=== PATIENT | male | born 1980 | race Caucasian/White ===

== ENCOUNTER 2022-02-22 11:00 | Emergency (ER) | payer BC, SELFPAY ==
--- NOTE | ~2022-02-22 | CT_ITS ---
EXAMINATION: CT brain wo con DATE: 02/22/2022 13:45 INDICATION: Right thigh pain, headaches and vision loss. TECHNIQUE: Computed tomography (CT) of the head was performed without intravenous contrast. Sagittal and coronal reconstructions were performed. Automated exposure control and iterative reconstruction t echnique were employed. The dose-length product was 605.33 mGy-cm. COMPARISON: head CT dated 12/14/17 FINDINGS: No acute intracranial hemorrhage, acute infarction or abnormal extra axial fluid collection. Ventricl es are normal and symmetric. No mass/mass effect. Mild mucosal thickening the bilateral maxillary sin uses. The orbits and mastoid air cells are normal. IMPRESSION: 1. Normal brain. No acute intracranial process. Reviewed, dictated and finalized at location A. [employer]PER
[2022-02-22 11:23] VITALS: BP 139/88; PULSE 72; RESP 16; TEMP 36.6; O2SAT 98
--- NOTE | 2022-02-22 13:35 | ED.EYEPROB ---
HPI - Eye Problem General Chief complaint: Eye Problems <Amy Solis PA-C - Last Filed: 02/22/22 18:11> Stated complaint: r eye/shooting pain <ILYA Vernon Last Filed: 02/22/22 18:11> Time Seen by Provider: 02/22/22 13:19 <ILYA Vernon Last Filed: 02/22/22 18:11> History of Present Illness HPI Narrative: Patient is a 42-year-old male here for evaluation of atraumatic right eye pain. Patient states the pain has been there for the past 2 weeks, and is worse with blinking. He denies known foreign body. He does not wear contact lenses or glasses. Patient is unsure if he has had blurry vision. He is concerned because his father has a history of pseudotumor cerebri and is requesting head imaging. No headaches, nausea, vomiting, proptosis, eye redness or discharge. <Amy Solis PA-C - Last Filed: 02/22/22 18:11> Related Data Allergies/adverse reactions: Allergies Allergy/AdvReac Type Severity Reaction Status Date / Time No Known Allergies Allergy Verified 02/22/22 13:25 <ILYA Vernon Last Filed: 02/22/22 18:11> Review of Systems Review of Systems: Gen.: Denies fevers or chills Eyes: Reports eye pain ENT: Denies congestion Respiratory: Denies shortness of breath or cough CV: Denies chest pain or palpitations GI: Denies abdominal pain nausea, emesis or diarrhea denies burning, urgency, frequency or hematuria Musculoskeletal: Denies back pain or muscle pain Neuro: Denies numbness, tingling, weakness or focal weakness Skin: Denies rash Except as documented, all other systems reviewed and negative <ILYA Vernon Last Filed: 02/22/22 18:11> Exam Narrative: APPEARANCE: Well appearing, no pain in distress, well-nourished. Head: No scalp tenderness. Normocephalic and atraumatic. EYES: PERRLA/EOMI, conjunctivae clear. Fluorescein exam without area of uptake; Joceline sign negative. No pain with extraocular movements. NOSE: No nasal drainage EARS: External ear normal in appearance THROAT: Oropharynx is clear. Mucous membranes are moist. NECK: Supple. No adenopathy, no masses. RESPIRATORY: Airway patent, respirations nonlabored. Clear to auscultation bilaterally, no rales, rhonchi, wheezing. CARDIOVASCULAR: Regular rate and rhythm without murmurs, rubs, or gallops. ABDOMINAL: Normoactive bowel sounds. Soft, nontender, nondistended. No rebound tenderness or guarding. MUSCULOSKELETAL: Extremities are warm and well-perfused. Moves all extremities well. No edema. NEURO: Normal speech. No focal neurologic deficits. SKIN: Skin is warm and dry. No rashes. PSYCHIATRIC: Normal affect/mood. <Amy Solis PA-C - Last Filed: 02/22/22 18:11> Course TOP CASE ASSEMBLER/PA Physician Supervision For this patient encounter, I reviewed the TOP CASE ASSEMBLER or PA documentation, treatment plan, and medical decision making <Talib Garcia MD - Last Filed: 02/22/22 21:41> Vital Signs Vital signs: Vital Signs Temperature 98 F 02/22/22 11:23 Pulse Rate 72 02/22/22 11:23 Respiratory Rate 16 02/22/22 11:23 Blood Pressure 139/88 02/22/22 11:23 Pulse Oximetry 98 02/22/22 11:23 Oxygen Delivery Room Air 02/22/22 11:23 Temperature 98 F 02/22/22 11:23 Pulse Rate 72 02/22/22 11:23 Respiratory Rate 16 02/22/22 11:23 Blood Pressure 139/88 02/22/22 11:23 Pulse Oximetry 98 02/22/22 11:23 Oxygen Delivery Room Air 02/22/22 11:23 <Amy Solis PA-C - Last Filed: 02/22/22 18:11> Vital Signs Temperature 98 F 02/22/22 11:23 Pulse Rate 72 02/22/22 11:23 Respiratory Rate 16 02/22/22 11:23 Blood Pressure 139/88 02/22/22 11:23 Pulse Oximetry 98 02/22/22 11:23 Oxygen Delivery Room Air 02/22/22 11:23 Temperature 98 F 02/22/22 11:23 Pulse Rate 72 02/22/22 11:23 Respiratory Rate 16 02/22/22 11:23 Blood Pressure 139/88 02/22/22 11:23 Pulse Oximetry 98 02/22
== END 2022-02-22 14:17 | disposition home or self-care (01) ==
LOC: ANHED 14:07
PROVIDERS: Emergency Provider Emergency Medicine
DX: H57.11 Ocular pain, right eye (principal)
CPT/HCPCS: 70450; 99284

== ENCOUNTER 2022-08-30 19:17 | Emergency (ER) | payer BC, SELFPAY ==
[2022-08-30] VITALS (21 sets, daily range): BP systolic 131–168; BP diastolic 81–105; PULSE 64–90; RESP 13–29; TEMP 36.9; O2SAT 96–100
--- NOTE | ~2022-08-30 | XR_ITS ---
EXAMINATION: XR chest 2V DATE: 08/30/2022 19:40 INDICATION: Nonradiating chest pain post 5 multiloculated TECHNIQUE: PA and lateral views of the chest were obtained. COMPARISON: Chest radiograph dated 09/06/2014 FINDINGS: The lungs remain clear with no focal airspace opacities, pulmonary edema, pleural effusion or pneumot horax. The cardiomediastinal silhouette is normal. Visualized bones and soft tissues are unremarkable . IMPRESSION: 1. Normal chest radiograph. Reviewed, dictated and finalized at location A. IMPRESSION: 1. Normal chest radiograph.
--- NOTE | 2022-08-30 19:19 | ECG_ITS ---
Measurements Intervals [place] Rate: 89 P: 47 [place]: 150 QRS: 19 QRSD: 93 T: 11 QT: 363 QTc: 444 Interpretive Statements SINUS RHYTHM MINIMAL Q WAVES- HIGH LATERAL LEADS NONSPECIFC ST ELEVATION IN ANTEROLATERAL LEADS BORDERLINE T WAVE ABNORMALITY- INFERIOR LEADS BASELINE ARTIFACT- I, III, AVL BORDERLINE ECG NO PREVIOUS ECG AVAILABLE FOR COMPARISON Electronically Signed On 08-30-2022 21:22:27 CDT by Paolo Pelaez D.O.
--- NOTE | 2022-08-30 19:52 | ED.CHESTPAIN ---
HPI - Chest Pain General Chief Complaint: Chest Pain Stated Complaint: chest pain, lightheaded Time Seen by Provider: 08/30/22 19:39 History of Present Illness HPI narrative: Patient is a 42-year-old male presenting with chest pain. Patient states that he was walking his dog when he was attacked by his neighbors dog. States that he then went on a 5 mile walk to work-up his anxiety and when he stopped he developed intermittent chest pain. States that it is left-sided and goes into his epigastrium. His gave him some Xanax and ibuprofen but the symptoms continued so he came in for evaluation. States that he will feel a little bit lightheaded whenever the pain comes on but he otherwise denies associated symptoms. No diaphoresis, nausea, shortness of breath, palpitations, leg swelling, back pain. No numbness or weakness. Related Data Allergies Allergy/AdvReac Type Severity Reaction Status Date / Time No Known Allergies Allergy Verified 08/30/22 19:34 Review of Systems Review of Systems: All systems reviewed & are unremarkable except as noted in HPI and below Exam Narrative: GENERAL: Well-appearing, well-nourished, and in no acute distress. HEAD: Normocephalic, atraumatic. EYES: PERRLA and EOMI. ENT: Nares clear, no rhinorrhea or epistaxis. Mucous membranes moist. NECK: Supple. CHEST: Clear to auscultation. No respiratory distress. HEART: Regular rate and rhythm. No murmur heard. Normal peripheral pulses. ABDOMEN: Soft, nontender, nondistended EXTREMITIES: Normal range of motion. No edema. SKIN: Warm, dry, no rash. NEURO: No focal deficits. Alert and oriented x3. PSYCH: Normal mood and affect. Course Vital Signs Vital signs: Vital Signs Temperature 98.5 F 08/30/22 19:22 Pulse Rate 88 08/30/22 19:22 Respiratory Rate 16 08/30/22 19:22 Blood Pressure 166/85 H 08/30/22 19:22 Pulse Oximetry 99 08/30/22 19:22 Oxygen Delivery Room Air 08/30/22 19:22 Temperature 98.5 F 08/30/22 19:22 Pulse Rate 66 08/30/22 23:21 Respiratory Rate 15 08/30/22 23:21 Blood Pressure 140/96 H 05/29/23 23:21 Pulse Oximetry 100 08/30/22 23:21 Oxygen Delivery Room Air 08/30/22 19:22 MDM - Chest Pain MDM Narrative Medical decision making narrative: Patient is a 42-year-old male presenting with intermittent chest pain. Patient is hypertensive, otherwise vitals are within normal limits. Exam remarkable for the above. EKG per my interpretation shows normal sinus rhythm, normal axis and intervals, no ST elevations or depressions. Chest x-ray shows no acute abnormalities. Blood work is unremarkable. Electrolytes are normal. Renal function is normal. Troponin is undetectable x2. On reevaluation, the patient states that his pain has resolved. Discussed the reassuring work-up. Suspect a component of anxiety as pt's symptoms started after his dog was attacked. Advised that he follow-up closely with primary care. Appropriate return precautions given. Patient voiced understanding and is agreeable with plan. Discharged in stable condition. Differential Diagnosis Differential diagnosis: Likely pneumothorax, atypical chest pain, costochondritis and chest pain Medical Records Data Attestation: I reviewed the patient's medical records. Lab Data Attestation: I reviewed the patient's lab results. 08/30/22 19:52 08/30/22 19:52 Labs: Lab Results 08/30/22 08/30/22 Range/Units 19:52 22:14 WBC 8.8 (4.5-10.0) K/mm3 RBC 4.74 (4.6-6.20) M/mm3 Hgb 14.9 (14.0-18.0) g/dL Hct 43.6 (42.0-52.0) % MCV 92.0 (80-100) fl MCH 31.4 (26-34) pg MCHC 34.2 (32-36) g/dl RDW 14.2 (11.5-14.5) % Plt Count 170 (150-375) k/mm3 MPV 9.8 (7.4-10.4) fl Immature Gran % (Auto) 0.3 (0-0.5) % Neut % (Auto) 57.8 (45.5-73.1) % Lymph % (Auto) 27.7 (18.3-44.2) % [place] % (Auto) 8.3 (2.6-8.5) % Eos % (Auto) 5.3 H (0-4.4) % Baso % (Auto) 0.6
[2022-08-30 19:57] LABS: Basophils Absolute Auto 0.1 K/mm3 (0.0-0.1); Basophils Percent Auto 0.6 % (0.2-1.2); Eosinophils Absolute Auto 0.5 K/mm3 (0-0.3); Eosinophils Percent Auto 5.3 % (0-4.4); Hematocrit 43.6 % (42.0-52.0); Hemoglobin 14.9 g/dL (14.0-18.0); Immature Granulocyte Absolute 0.03 K/mm3 (0.00-0.031); Immature Granulocyte Percent A 0.3 % (0-0.5); Lymphocytes Absolute Auto 2.43 K/mm3 (0.9-3.2); Lymphocytes Percent Auto 27.7 % (18.3-44.2); Mean Corpuscular HGB Conc 34.2 g/dl (32-36); Mean Corpuscular Hemoglobin 31.4 pg (26-34); Mean Platelet Volume 9.8 fl (7.4-10.4); Monocytes Absolute Auto 0.7 K/mm3 (0.1-0.6); Monocytes Percent Auto 8.3 % (2.6-8.5); Neutrophils Absolute Auto 5.1 K/mm3 (1.3-6.7); Neutrophils Percent Auto 57.8 % (45.5-73.1); Platelet Count Result 170 k/mm3 (150-375); Red Blood Count 4.74 M/mm3 (4.6-6.20); Red Cell Distribution Width 14.2 % (11.5-14.5); White Blood Count 8.8 K/mm3 (4.5-10.0)
[2022-08-30] MEDS: ASPIRIN 81 MG CHEWABLE TABLET 324 MG PO (20:01)
[2022-08-30 20:09] LABS: Prothrombin Time 13.2 Seconds (11.1-14.7)
[2022-08-30 20:10] LABS: Alanine Aminotransferase 61 U/L (6-50); Albumin Level 4.5 g/dL (3.5-5.1); Alkaline Phosphatase 73 U/L (38-126); Anion Gap 5 mmol/L (8-16); Aspartate Amino Transferase 43 U/L (17-59); Bilirubin,Total 0.5 mg/dL (0.2-1.3); Blood Urea Nitrogen 15 mg/dL (9-20); Carbon Dioxide 29 mmol/L (22-30); Chloride 102 mmol/L (98-107); Estimated CRCL calculation 117 ml/min; Estimated Glomerular Filt Rate > 60; Glucose 102 mg/dL (65-110); Lipase 135 U/L (23-300); Sodium 136 mmol/L (137-145)
[2022-08-30 20:21] LABS: Troponin I < 0.012 ng/mL (0.000-0.034)
[2022-08-30 22:43] LABS: Troponin I < 0.012 ng/mL (0.000-0.034)
== END 2022-08-30 23:22 | disposition home or self-care (01) ==
PROVIDERS: Emergency Provider Emergency Medicine
DX: R07.89 Other chest pain (principal); R94.31 Abnormal electrocardiogram [ECG] [EKG]
CPT/HCPCS: 36415; 71046; 80053; 83690; 84484; 85025; 85610; 85730; 93005; 99284; A9270

== ENCOUNTER 2023-03-02 09:54 | Emergency (ER) | payer BC, SELFPAY ==
--- NOTE | ~2023-03-02 | XR_ITS ---
[XR ribs LT 2V w CXR 2V ] INDICATION: Left rib pain. Cough. TECHNIQUE: Frontal projection of the upper left ribs, frontal projection of the lower left ribs, obli que projection of all the left ribs, frontal inspiratory chest x-ray for interpretation. FINDINGS: There are no displaced rib fractures identified. There are no soft tissue abnormality see n. The lungs are clear. IMPRESSION: 1:No acute displaced rib fractures. Reviewed, dictated and finalized at location B. [employer]
[2023-03-02 10:01] VITALS: BP 154/64; PULSE 54; RESP 18; TEMP 36.8; O2SAT 97
--- NOTE | 2023-03-02 11:29 | ED.GENADULT ---
HPI - General Adult General Chief complaint: Unspecified Stated complaint: Left sd rib pain Time Seen by Provider: 03/02/23 11:00 Source: patient Mode of arrival: ambulatory Limitations: no limitations History of Present Illness HPI narrative: This is a 43 year old male that presents to the emergency department for left-sided rib pain ongoing over the last couple of weeks. Reports he had been coughing a couple weeks ago and felt a sudden pain on the left side of his ribs. He was starting to feel better and then a couple days ago after turning over in bed he felt the pain again in it worsened which prompted him to be seen. Denies fever, cough or shortness of breath. Related Data Allergies Allergy/AdvReac Type Severity Reaction Status Date / Time No Known Allergies Allergy Verified 03/02/23 11:00 Review of Systems Review of Systems: CONSTITUTIONAL: Denies fever CARDIOVASCULAR: Reports rib pain RESPIRATORY: Denies cough or dyspnea. All systems reviewed & are unremarkable except as noted in HPI and below PMFSH Past Medical History Medical History (Updated 03/02/23 @ 11:36 by Amy Dan PA-C) No active medical problems Social History Social History (Updated 03/02/23 @ 11:36 by Amy Dan PA-C) Substance use: never Exam Narrative: GENERAL: Well-appearing, well-nourished, and in no acute distress. HEAD: Normocephalic, atraumatic. EYES: EOMI. CHEST: Clear to auscultation. No respiratory distress. No wheezes rales or rhonchi HEART: Regular rate and rhythm. No murmur heard. Normal peripheral pulses. ABDOMEN: Soft, nontender, nondistended, normal active bowel sounds. EXTREMITIES: Normal range of motion. No edema. SKIN: Warm, dry, no rash. NEURO: No focal deficits. Alert and oriented x3. PSYCH: Normal mood and affect Course Course Emergency Course: Patient updated on workup and agrees with plan of care Vital Signs Vital signs: Vital Signs Temperature 98.3 F 03/02/23 10:01 Pulse Rate 54 L 03/02/23 10:01 Respiratory Rate 18 03/02/23 10:01 Blood Pressure 154/64 H 03/02/23 10:01 Pulse Oximetry 97 03/02/23 10:01 Temperature 98.3 F 03/02/23 10:01 Pulse Rate 54 L 03/02/23 10:01 Respiratory Rate 18 03/02/23 10:01 Blood Pressure 154/64 H 03/02/23 10:01 Pulse Oximetry 97 03/02/23 10:01 Medical Decision Making MDM Narrative Medical decision making narrative: Patient presents to the emergency department for left-sided rib pain. Reports he had been coughing a couple weeks ago and felt a sudden pain on the left side of his ribs. Reports couple days ago after turning over in bed he felt the pain again in it worsened which prompted him to be seen. He is afebrile and nontoxic appearing. Lungs are clear on exam. Left-sided rib/chest x-ray without acute osseous abnormalities or cardiopulmonary abnormality. Patient was updated on workup. Instructed on further care of muscle strain. He is to follow up with primary provider. He was given warnings to return to the ER Vital Signs Vital Signs: Vital Signs Temperature 98.3 F 03/02/23 10:01 Pulse Rate 54 L 03/02/23 10:01 Respiratory Rate 18 03/02/23 10:01 Blood Pressure 154/64 H 03/02/23 10:01 Pulse Oximetry 97 03/02/23 10:01 Temperature 98.3 F 03/02/23 10:01 Pulse Rate 54 L 03/02/23 10:01 Respiratory Rate 18 03/02/23 10:01 Blood Pressure 154/64 H 03/02/23 10:01 Pulse Oximetry 97 03/02/23 10:01 Imaging Data Radiologist's impression: ITS Impressions Ribs w/Chest X-Ray 03/02/23 10:53 IMPRESSION: 1:No acute displaced rib fractures. Critical Care Time Critical Care Time Critical Care Time: No Discharge Plan Discharge Clinical Impression: Rib pain on left side Patient Disposition: Home, Self-Care Condition: Stable Instructions: Muscle Strain (ED) Additional Instructions: Return to the ER if you experience fever, chest pain, shor
[2023-03-02 11:39] VITALS: BP 148/72; PULSE 59; RESP 18; O2SAT 98
== END 2023-03-02 11:39 | disposition home or self-care (01) ==
PROVIDERS: Emergency Provider Physician Assistant
DX: R07.81 Pleurodynia (principal)
CPT/HCPCS: 71046; 71100; 99283

== ENCOUNTER 2024-02-09 13:18 | Emergency (ER) | payer BC, SELFPAY ==
[2024-02-09 13:23] VITALS: BP 142/97; PULSE 94; RESP 20; TEMP 36.4; O2SAT 98
[2024-02-09 16:05] LABS: Basophils Percent Auto 0.2 % (0.2-1.2); Eosinophils Percent Auto 11.5 % (0-4.4); Hematocrit 50.7 % (42.0-52.0); Hemoglobin 17.4 g/dL (14.0-18.0); Immature Granulocyte Absolute 0.04 K/mm3 (0.00-0.031); Immature Granulocyte Percent A 0.5 % (0-0.5); Lymphocytes Absolute Auto 1.25 K/mm3 (0.9-3.2); Lymphocytes Percent Auto 14.5 % (18.3-44.2); Mean Corpuscular HGB Conc 34.3 g/dl (32-36); Mean Corpuscular Hemoglobin 32.2 pg (26-34); Mean Corpuscular Volume 93.9 fl (80-100); Mean Platelet Volume 10.8 fl (7.4-10.4); Monocytes Absolute Auto 0.4 K/mm3 (0.1-0.6); Monocytes Percent Auto 4.4 % (2.6-8.5); Neutrophils Percent Auto 68.9 % (45.5-73.1); Platelet Count Result 187 k/mm3 (150-375); Red Cell Distribution Width 13.6 % (11.5-14.5); White Blood Count 8.6 K/mm3 (4.5-10.0)
[2024-02-09 16:15] LABS: Lactic Acid Reflex 1.1 mmol/L (0.7-2.0)
[2024-02-09 16:18] LABS: Alanine Aminotransferase 45 U/L (6-50); Albumin Level 4.8 g/dL (3.5-5.1); Alkaline Phosphatase 119 U/L (38-126); Anion Gap 13 mmol/L (4-12); Aspartate Amino Transferase 38 U/L (17-59); Blood Urea Nitrogen 13 mg/dL (9-20); Calcium 9.6 mg/dL (8.4-10.2); Carbon Dioxide 26 mmol/L (22-30); Chloride 96 mmol/L (98-107); Estimated CRCL calculation 99 ml/min; Estimated Glomerular Filt Rate > 60; Glucose 108 mg/dL (65-110); Sodium 135 mmol/L (137-145)
[2024-02-09] MEDS: ceFAZolin SODIUM 1 GM VIAL IV PUSH (17:08)
[2024-02-09] MEDS: KETOROLAC 15 MG/ML VIAL (*BKC) IV PUSH (17:09)
[2024-02-09 17:17] VITALS: BP 138/86; PULSE 82; RESP 18; TEMP 36.7; O2SAT 98
--- NOTE | 2024-02-09 18:56 | ED.EXTPRO ---
HPI - Extremity Problem General Chief complaint: Extremity Problem,Nontraumatic Stated complaint: infected lumps? Time Seen by Provider: 02/09/24 15:23 History of Present Illness HPI Narrative: Patient with recent diagnosis of cellulitis to L shoulder after injecting himself with a possible dirty needle accidentally. Just started on Bactrim, has taken 2 doses of it, and started having some viral syndrome tonight with mild nausea and diarrhea and back pain. Unsure if this is related. Area of skin induration on shoulder has not changed or gotten bigger. Related Data Allergies Allergy/AdvReac Type Severity Reaction Status Date / Time No Known Allergies Allergy Verified 03/02/23 11:00 Review of Systems Review of Systems: All systems reviewed & are unremarkable except as noted in HPI and below PMFSH Past Medical History Medical History (Updated 02/09/24 @ 16:29 by Elva Mckee MD) No active medical problems Social History Social History (Updated 03/02/23 @ 11:36 by Amy Dan PA-C) Substance use: never Exam Narrative: EXAMINATION OF ORGAN SYSTEMS/BODY AREAS: Constitutional: Vital signs per nursing GENERAL:[No acute distress, non-toxic appearing.] HEAD: Normal with no signs of head trauma. EYES: EOMI, conjunctiva normal ENT: Hearing grossly intact LUNGS: Nonlabored breathing. HEART: [Regular rate and rhythm] ABD: [Soft], [nontender to palpation] EXT: 4cm area induration to L shoulder; no significant fluctuance or tenderness or streaking BACK: No midline tenderness SKIN: [No rashes or lesions.] NEURO: [Alert and oriented x 3. No gross focal sensory or strength deficits.] PSYCH: Normal affect Course Vital Signs Vital signs: Vital Signs Temperature 97.5 F L 02/09/24 13:23 Pulse Rate 94 02/09/24 13:23 Respiratory Rate 20 02/09/24 13:23 Blood Pressure 142/97 H 02/09/24 13:23 Pulse Oximetry 98 02/09/24 13:23 Oxygen Delivery Room Air 02/09/24 13:23 Temperature 98.1 F 02/09/24 17:17 Pulse Rate 82 02/09/24 17:17 Respiratory Rate 18 02/09/24 17:17 Blood Pressure 138/86 02/09/24 17:17 Pulse Oximetry 98 02/09/24 17:17 Oxygen Delivery Room Air 02/09/24 13:23 MDM - Extremity (Nontraumatic) MDM Narrative Medical decision making narrative: MEDICAL DECISION MAKING AND COURSE IN THE ED WITH INTERPRETATION/REVIEW OF DIAGNOSTIC STUDIES: Electronic medical record was reviewed. Patient presented to the ED with complaint of painful skin rash. Vitals [were within acceptable limits]. Physical exam revealed area of tenderness and induration consistent with cellulitis without fluctuance. [Given patient had complaints of fever/chills at home, will obtain labs here. CBC without evidence of elevated white count and lactic acid.] I will also obtain blood cultures. Since he has only had 2 doses so far Bactrim I do suspect he will improve as he continues to take the antibiotics. I will however at on Keflex to cover strep/cellulitis. The patient is discharged home in stable condition. I have asked the patient to return to the emergency department for worsening pain, worsening and increasing size of skin infection, fevers/chills. The patient is instructed to follow up with [PCP] in [2] days. Patient verbalized understanding. Lab Data 02/09/24 15:51 02/09/24 15:51 Labs: Lab Results 02/09/24 Range/Units 15:51 WBC 8.6 (4.5-10.0) K/mm3 RBC 5.40 (4.6-6.20) M/mm3 Hgb 17.4 (14.0-18.0) g/dL Hct 50.7 (42.0-52.0) % MCV 93.9 (80-100) fl MCH 32.2 (26-34) pg MCHC 34.3 (32-36) g/dl RDW 13.6 (11.5-14.5) % Plt Count 187 (150-375) k/mm3 MPV 10.8 H (7.4-10.4) fl Immature Gran % (Auto) 0.5 (0-0.5) % Neut % (Auto) 68.9 (45.5-73.1) % Lymph % (Auto) 14.5 L (18.3-44.2) % [place] % (Auto) 4.4 (2.6-8.5) % Eos % (Auto) 11.5 H (0-4.4) % Baso % (Auto) 0.2 (0.2-1.2) % Lymph # (Auto) 1.25 (0.9-3.2) K/mm3 [place] # (Auto) 0.4 (0.1-0.6) K/mm3 Eos # (Auto) 1.0 H (0-0.3) K/mm3 Baso # (Auto) 0.0 (0.0-0.1) K/mm3 Abs Immat Gran (auto) 0.04 H (0.00-0.031) K/mm3 Absolute Neuts (auto) 6.0 (1.3-6.7) K/mm3 Absolute Nucleated RBC 0.000 (0.0-0.012) K/mm3 Nucleated RBC % 0.0 (0.0-0.2) % Sodium 135 L (137-145) mmol/L Potassium 4.0 (3.4-5.0) mmol/L Chloride 96 L (98-107) mmol/L Carbon Dioxide 26 (22-30) mmol/L Anion Gap 13 H (4-12) mmol/L BUN 13 (9-20) mg/dL Creatinine 1.10 (0.7-1.3) mg/dL Estim Creat Clear Calc 99 ml/min Estimated GFR > 60 (59 - ) Glucose 108 (65-110) mg/dL Lactic Acid 1.1 (0.7-2.0) mmol/L Calcium 9.6 (8.4-10.2) mg/dL Total Bilirubin 1.0 (0.2-1.3) mg/dL AST 38 (17-59) U/L ALT 45 (6-50) U/L Alkaline Phosphatase 119 (38-126) U/L Total Protein 9.0 H (6.3-8.2) g/dL Albumin 4.8 (3.5-5.1) g/dL Discharge Plan Discharge Clinical Impression: Cellulitis, Acute viral syndrome Patient Disposition: Home, Self-Care Condition: Stable Instructions: Cellulitis (ED), Viral Syndrome (ED) Additional Instructions: Please try to keep hydrated, take ibuprofen/tylenol and the antibiotics, and if the skin area gets worse, or anything else concerning, you can always come back. Please follow up with your doctor. Prescriptions: New cephalexin 750 mg capsule 750 mg PO Q8H 7 Days Qty: 21 0RF methocarbamol 750 mg tablet 750 mg PO TID PRN (Reason: muscle spasm) Qty: 30 0RF No Action cyclobenzaprine 10 mg tablet 10 mg PO TID PRN (Reason: muscle spasm) Qty: 14 0RF Follow-up/Referrals: PHYSICIAN NOT ON STAFF,NONSTAFF [Primary Care Provider] - Stand Alone Forms: Work/School Release IP
== END 2024-02-09 17:18 | disposition home or self-care (01) ==
PROVIDERS: Emergency Provider Emergency Medicine
DX: B34.9 Viral infection, unspecified (principal); L03.114 Cellulitis of left upper limb
CPT/HCPCS: 36415; 80053; 83605; 85025; 87040; 96374; 96375; 99284; J0690; J1885

== ENCOUNTER 2025-03-08 07:19 | Outpatient (CLI) | payer BC, SELFPAY ==
--- NOTE | ~2025-03-08 | US_ITS ---
Examination: US abdomen complete Clinical History: ELEVATED LFT . Comparison: None Technique: Complete abdominal sonography Findings: Liver: Enlarged. Echogenic. No intrahepatic biliary ductal dilatation. Normal hepatopedal flow main portal vein. Common duct: Normal caliber, 4 mm. Gallbladder: No stones. No wall thickening. No pericholecystic fluid. Spleen: Unremarkable. Pancreas: Unremarkable. Kidneys: Unremarkable. Aorta: No aneurysmal dilatation. Retrohepatic IVC: Unremarkable. IMPRESSION: 1. Hepatomegaly with steatosis and/or hepatocellular disease. Reviewed, dictated and finalized at location R. [employer]CH[employer]ISING
== END 2025-03-08 07:20 | disposition home or self-care (01) ==
PROVIDERS: PCP Family Medicine; Visit Provider Family Medicine
DX: R79.89 Other specified abnormal findings of blood chemistry (principal); K76.0 Fatty (change of) liver, not elsewhere classified
CPT/HCPCS: 76700